=== PATIENT | male | born 1985 | race Two or more races ===

== ENCOUNTER 2020-07-08 08:30 | Inpatient (IN) | payer OTHER ==
[~2020-07-08] VITALS: Ht 190.5 cm; Wt 124.3 kg
[2020-08-05] MEDS ORDERED: ceFAZolin sod 1 GM in NS 55 ML IVPB ONE (07:00)
[2020-08-12] VITALS (11 sets, daily range): BP systolic 106–138; BP diastolic 34–79
[2020-08-12] MEDS ORDERED: Rocuronium Bromide 50mg/5ml Inj IV ONE (07:21)
[2020-08-12] MEDS ORDERED: Succinylcholine 20mg/ml 10ml vial ONE (07:21)
[2020-08-12] MEDS ORDERED: Vancomycin 1gm vial IVPB ONE (07:28)
[2020-08-12] MEDS ORDERED: Thrombin 5000 units TOPIC ONE ×3 (07:28→09:17)
[2020-08-12] MEDS ORDERED: EPINEPHrine 1mg/1ml Amp ONE ×2 (07:28→07:30)
[2020-08-12] MEDS ORDERED: Bupivacaine 0.5% Inj 30 ml vial INJ ONE ×2 (07:29→07:30)
[2020-08-12] MEDS ORDERED: Bupivacaine w/Epi 0.25% 50ml vial INJ ONE (07:29)
[2020-08-12] MEDS ORDERED: Bacitracin 50000 Units Vial ONE (07:29)
[2020-08-12] MEDS ORDERED: Gelfoam Size TOPIC ONE (07:31)
[2020-08-12] MEDS ORDERED: fentaNYL 100 mcg/2 mL IV ONE (07:35)
[2020-08-12] MEDS ORDERED: Midazolam 2mg/2ml Inj ONE (07:36)
[2020-08-12] MEDS ORDERED: Lidocaine 1% MPF 10mg/ml 5ml ONE (07:41)
[2020-08-12] MEDS ORDERED: NS Irrig 1000ml IRRIG ONE ×2 (07:42→08:42)
--- NOTE | 2020-08-12 08:10 | Anethesia Preoperative Eval ---
Anesthesia Pre-op PMH/ROS General Date of Evaluation: Aug 12, 2020 Time of Evaluation: 08:06 Anesthesiologist: Yelitza ASA Score: ASA 2 Mallampati Score Class I : Soft palate, uvula, fauces, pillars visible Class II: Soft palate, uvula, fauces visible Class III: Soft palate, base of uvula visible Class IV: Only hard plate visible Mallampati Classification: Class III Surgeon: Juan Diagnosis: Lumbar radiculopathy Surgical Procedure: Lumbar laminotomy with decompression Anesthesia History: none Family History: no anesthesia problems Allergies: Coded Allergies: No Known Allergies (Unverified , 07/30/20) Medications: see eMAR Patient NPO?: Yes Past Medical History Cardiovascular: Denies: HTN, CAD, [place], valve dz, arrhythmia, other Pulmonary: Denies: asthma, COPD, ISABELL, other Gastrointestinal/Genitourinary: Reports: GERD; Denies: CRI, ESRD, other Neurologic/Psychiatric: Reports: depression/anxiety, other - chronic pain; Denies: dementia, CVA, TIA Endocrine: Denies: DM, hypothyroidism, steroids, other HEENT: Denies: cataract (L), cataract (R), glaucoma, TE-MOAK (L), TE-MOAK (R), other Hematology/Immune: Denies: anemia, DVT, bleeding disorder, other Musculoskeletal/Integumentary: Denies: OA, RA, DJD, DDD, edema, other Other: obesity PMH Narrative: as above PSxH Narrative: See H&P Anesthesia Pre-op Phys. Exam Physician Exam Last Vital Signs Date Time Temp Pulse Resp B/P (MAP) Pulse Ox O2 Delivery O2 Flow Rate FiO2 08/12/20 07:41 98.1 72 18 138/79 (98) 98 08/12/20 07:39 Room Air Constitutional: NAD Neurologic: CN 2-12 intact Cardiovascular: RRR, no M/R/G Respiratory: CTA Gastrointestinal: other - obesity Airway Exam Mallampati Score: Class III Neck: short ROM: full Teeth: intact Dentures: no upper, no lower Anesthesia Pre-op A/P Labs see chart Studies Pre-op Studies: EKG - SR Risk Assessment & Plan Assessment: ASA 2 Plan: GA with ETT neuromonitoring, prone position Status Change Before Surgery: No Pre-Antibiotics Drug: Ancef 2gr. Given Within 1 Hr of Incision: Yes Time Given: 09:10 Papi Torre MD Aug 12, 2020 08:10
[2020-08-12] MEDS ORDERED: propofoL 1,000mg/100ml IV ONE (08:30)
[2020-08-12] MEDS ORDERED: NS Irrig 1000ml ONE (08:30)
[2020-08-12] MEDS ORDERED: LR 1000ml ONE (08:30)
[2020-08-12] MEDS ORDERED: Acetaminophen (Non formulary) 100 ML IV ONE (08:30)
[2020-08-12] MEDS ORDERED: Sterile Water Irrig 1000ml IRRIG ONE (08:30)
--- NOTE | 2020-08-12 09:08 | Pre-Procedure Note/Attestation ---
Pre-Procedure Note/Attestation Complete Prior to Procedure Procedure Narrative: L45 laminectomy and discectomy Indications for Procedure Pre-Operative Diagnosis: L45 HNP Attestation I attest that I discussed the nature of the procedure; its benefits; risks and complications; and alternatives (and the risks and benefits of such alternatives), prior to the procedure, with the patient (or the patient's legal financial representative). I attest that, if there was a reasonable possibility of needing a blood transfusion, the patient (or the patient's legal financial representative) was given the [facility] standardized written summary, pursuant to the Yannick Ruby Blood Safety Act ([place] Health and Safety Code # 1645, as amended). I attest that I re-evaluated the patient just prior to the surgery and that there has been no change in the patient's H&P, except as documented below: Jerardo Martinez MD Aug 12, 2020 09:08
--- NOTE | 2020-08-12 09:09 | Brief Operative Note ---
Immediate Post Operative Note Operative Note Pre-op Diagnosis: L45 HNP Procedure: L45 laminectomy and discectomy Post-op Diagnosis: same as pre-op Findings: consistent w/pre-op dx studies Surgeon: tere Administrative Support Clerk: alicia burgess Anesthesiologist: koby Anesthesia: general Specimen: none Complications: none Condition: stable Fluids: 800 Estimated Blood Loss: minimal - 150 Drains: none Implant(s) used?: No Jerardo Martinez MD Aug 12, 2020 09:09
[2020-08-12] MEDS ORDERED: Gelatin Sponge,Absorbable Syr TP ONE (09:14)
[2020-08-12] MEDS ORDERED: Morphine Sulfate 10mg/ml Inj ONE (09:32)
[2020-08-12] MEDS ORDERED: Ketorolac 30mg Inj ONE (09:33)
[2020-08-12] MEDS ORDERED: Neostigmine 1mg/ml 10ml Inj ONE (09:33)
[2020-08-12] MEDS ORDERED: Glycopyrrolate 0.2mg/ml 1ml Vial ONE (09:33)
[2020-08-12] MEDS ORDERED: Sodium Chloride 10ml vial INJ ONE (09:33)
[2020-08-12] MEDS ORDERED: LR 1000ml 1,000 ML IVLG SCH (10:15)
[2020-08-12] MEDS ORDERED: Ketorolac 30mg Inj IV PRN (10:15)
[2020-08-12] MEDS ORDERED: Hydromorphone 0.5mg/0.5ml inj IVP PRN (10:15)
[2020-08-12] MEDS ORDERED: Midazolam 2mg/2ml Inj IVP PRN (10:15)
[2020-08-12] MEDS ORDERED: Metoclopramide 10mg/2ml Inj IVP PRN (10:15)
[2020-08-12] MEDS ORDERED: Meperidine 25mg/1ml Inj (FOR RIGORS ONLY) IV PRN (10:15)
[2020-08-12] MEDS ORDERED: DiphenhydrAMINE 50mg/ml Inj IVP PRN (10:15)
--- NOTE | 2020-08-12 11:47 | Immediate Post-Op Evaluation ---
Immediate Post-Op Evalulation Immediate Post-Op Evalulation Procedure: L4-L5 laminotomy with discectomy and decompression Date of Evaluation: Aug 12, 2020 Time of Evaluation: 11:46 IV Fluids: 800 Blood Products: none Estimated Blood Loss: 150 Urinary Output: none Blood Pressure Systolic: 106 Blood Pressure Diastolic: 53 Pulse Rate: 67 Respiratory Rate: 18 O2 Sat by Pulse Oximetry: 99 Temperature (Fahrenheit): 97.8 Pain Score (1-10): 1 Nausea: No Vomiting: No Complications none Patient Status: reacts, patent, extubated, none Hydration Status: adequate Papi Torre MD Aug 12, 2020 11:47
--- NOTE | 2020-08-12 12:44 | Operative Note - Dictated ---
DATE OF OPERATION: 08/12/2020 SURGEON: Jerardo Martinez MD. CONTRACT MANAGEMENT SPECIALIST: Shahab Castaneda PA-C. ANESTHESIOLOGIST: Papi Torre MD. ANESTHESIA TYPE: General endotracheal anesthesia. PREOPERATIVE DIAGNOSES: Disk herniation, extrusion, stenosis, and radiculopathy L4-L5. POSTOPERATIVE DIAGNOSES: Disk herniation, extrusion, stenosis, and radiculopathy L4-L5. PROCEDURE: 1. Complete bilateral laminectomy, L4-L5. 2. Neurolysis. 3. Left-sided diskectomy, L4-L5. 4. Use of operating microscope. 5. Use of fluoroscopy. 6. Neurodiagnostic monitoring. ESTIMATED BLOOD LOSS: 150 mL. COMPLICATIONS: None. FINDINGS: phenomenon, extensive neovascularization, scarring, and marked spinal stenosis with calcified and adherent disk ventral to the nerve sac. INDICATIONS: The patient is a very pleasant and 35-year-old with intractable back pain and radiculopathy both lower extremities, left greater than right. The injury is approximately 10 months old. Large disk herniation was noted. It has taken nearly 9 months to obtain authorization and be able to adequately schedule the patient. Conservative care has failed. MR imaging confirmed an exceedingly large disk herniation with severe acquired spinal stenosis. RISKS NOTE: The patient was explained in detail risks, benefits of surgery to include but not be limited to those of bleeding, infection, damage to nerves, vessels, tendons, anesthetic risk, allergic reaction, aspiration, possibly . The patient understood and wished to proceed. OPERATIVE PROCEDURE IN DETAIL: The patient was taken to the operating suite. After general endotracheal anesthesia was obtained, he was turned prone onto a radiolucent table. Back was prepped and draped in usual sterile fashion. A midline incision was marked out at the L4-L5 level and radiographically confirmed with fluoroscope. At this point, the skin was infiltrated with Marcaine epinephrine. The incision was carried out at L4-L5 and a subperiosteal dissection was carried out bilaterally. The left side was first addressed after the proper positioning was confirmed at L4-L5. At this point, operating microscope was brought in place and a hemilaminectomy was performed on the left side at L4-L5 with removal of the leading edge of lamina of L4 and superior edge of L5 with 50% medial facetectomy. Ligamentum flavum was removed in a piecemeal fashion. The dural sac was noted to be severely compressed. The nerve root was gently retracted medially and the disk was encountered. Multiple passes at the disc were made. However, the central extrusion was noted to be more central. The lateral extrusion was removed. There was still notable and severe spinal stenosis encountered due to central protrusion which due to the angle of the nerve root takeoff, this could not be safely removed unless we had sacrificed the entire facet joint. It was therefore elected to perform a complete dorsal laminectomy. Once satisfied with the diskectomy portion through the right side, the area was packed off. FloSeal was applied. A high-speed drill and rongeur was then used to remove the spinous process of L4 inferiorly and L5 superiorly. High-speed drill was used to remove the lamina of L4 and L5 approximately 50%. A minimal facetectomy was performed to avoid further destabilization. However, there was still notable lateral recess stenosis. Therefore, curved curette as well as Kerrison was used to undermine the leading edge of the facet on the right side. Once satisfied with the decompression, copious irrigation was applied. Valsalva demonstrated no CSF leak. FloSeal was applied due to the extensive bony work. Medium-sized Hemovac drain was placed deep to the fascia. Vancomycin was also applied 1 gram deep to the fascia due to the patient's large body habitus. The fascia was then repaired using #1 Vicryl, subcutaneous closure using 2-0 Vicryl. Dermabond was then applied. Tegaderm dressing was applied. At time of this dictation, the patient was awaiting extubation. Please note, sponge and needle counts were correct. Neurodiagnostic monitoring remained stable. Jerardo Martinez M.D. DR: Toni JOB#: [id number] CC:
--- NOTE | 2020-08-12 13:20 | NUR ---
NURSE NOTES: RN notified Dr. Ordoñez and Dr. Zavala that patient is on the floor.
--- NOTE | 2020-08-12 13:20 | NUR ---
NURSE NOTES: RN received patient from recovery nurse Santo. Patient is aaoX4. Patient went back to sleep after RN checked mentation. Ice bag is placed on the patient's bag. Belongings verified with Santo and signed. IV is patent, clean, dry and asymptomatic. Patient denies respiratory distress or pain. Vitals are stable: BP:134/77. 60 bpm, O2 100% on 3 L of NC, 97.3 for body temperature. Bed in lowest position, locked, bed alarm on. Call light within reach and patient able to make needs known. Will continue to monitor.
--- NOTE | 2020-08-12 13:42 | NUR ---
PT NOTE Received MD order for PT evaluation. Attempted to see patient for PT, patient sleeping post-op, unable to participate with PT at this time. Tanner ABAD notified, will follow up tomorrow.
--- NOTE | 2020-08-12 14:09 | Diagnostic Imaging Report ---
XRAY L Spine 1V CLINICAL HISTORY: Back pain. COMPARISON: None FINDINGS: Fluoroscopy independent procedure performed for intraoperative localization. 3.3 seconds of fluoroscopy time utilized by the ordering physician. Total cumulative dose is 1.68 mGy and 0.03148 Gy.cm2. Total of 2 spot images are obtained . IMPRESSION: FLUOROSCOPY GUIDED PROCEDURE.
[2020-08-12] MEDS ORDERED: HYDROmorphone 1mg/ml Carpuject SUBQ PRN (15:15)
[2020-08-12] MEDS ORDERED: HYDROmorphone 1mg/ml Carpuject IVP PRN (15:15)
[2020-08-12] MEDS: D5 1/2NS 1,000 ML IV SCH (15:49)
[2020-08-12] MEDS: Docusate 100mg cap ORAL SCH (17:30)
[2020-08-12] MEDS: ceFAZolin sod 1 GM in D5W 55 ML IV SCH (17:30)
--- NOTE | 2020-08-12 18:03 | Cardiology Progress Note ---
Assessment/Plan Assessment/Plan [id number] Objective Last 24 Hour Vital Signs Date Time Temp Pulse Resp B/P (MAP) Pulse Ox O2 Delivery O2 Flow Rate FiO2 08/12/20 13:58 Nasal Cannula 3.0 08/12/20 13:00 98.1 73 14 117/73 100 Nasal Cannula 3 08/12/20 12:53 98.1 08/12/20 12:45 63 13 113/72 100 Nasal Cannula 3 08/12/20 12:30 64 13 122/67 100 Nasal Cannula 3 08/12/20 12:15 65 12 117/34 100 Simple Mask 6 08/12/20 12:05 67 12 112/68 100 Simple Mask 6 08/12/20 11:55 65 10 106/55 100 Simple Mask 6 08/12/20 11:50 66 10 108/56 100 Simple Mask 6 08/12/20 11:47 67 18 99 08/12/20 11:45 97.4 68 10 106/48 100 Simple Mask 6 08/12/20 07:41 98.1 72 18 138/79 (98) 98 08/12/20 07:39 Room Air Evan Ordoñez MD Aug 12, 2020 18:03
--- NOTE | 2020-08-12 20:00 | NUR ---
NURSE NOTES: Received patient awake in bed, c/o mild pain at this time. RT called for IS instruction. Dr Zavala at bedside. Patient able to void in urinal. IV access patent. Bed low and locked, patient refusing SCDs at this time.
--- NOTE | 2020-08-12 20:01 | NUR ---
NURSE HAND-OFF: Important Events on Shift:post op interventions, hemovac drain (35ml bright red) Patient Status: stable Diet: clear liquid. advance to regular as tolerated Pending Orders: n/a Pending Results/Labs:n/a Pending MD notification:n/a Latest Vital Signs: Temperature 97.3 , Pulse 60 , B/P 134 /77 , Respiratory Rate 18 , O2 SAT 100 , Nasal Cannula, O2 Flow Rate 3.0 . Vital Sign Comment: stable Latest Stoll Fall Score: 10 Fall Risk: Low Risk Safety Measures: Call light Within Reach, Bed Alarm Zone 1, Side Rails Side Rails x2, Bed position Low and Locked. Fall Precautions: Yellow Socks Door Sign Patient Fall Education Report given to amaury.
--- NOTE | 2020-08-12 21:29 | Consultation ---
DATE OF CONSULTATION: 08/12/2020 CARDIOLOGY CONSULTATION CONSULTING PHYSICIAN: Evan Ordoñez MD REFERRING PHYSICIAN: Jerardo Martinez MD REASON FOR REFERRAL: Postoperative medical care. HISTORY OF PRESENT ILLNESS: This is a 35-year-old gentleman with history of lumbar spine disc herniation who underwent surgery by Dr. Martinez today and he is being seen postoperatively. He has done relatively well postoperatively. He has had some sore throat, is the only major complaint on questioning. Denies any chest pain or shortness of breath. No PND. No orthopnea. No palpitation. No dizziness. PAST MEDICAL HISTORY: Negative except for chronic low back pain and radiculopathy for which he has undergone surgery today. ALLERGIES: He is not allergic to any medications. SOCIAL HISTORY: He does not smoke and does not drink alcoholic beverages. No use of any drugs. REVIEW OF SYSTEMS: GASTROINTESTINAL: Negative for nausea, vomiting, diarrhea, or constipation. Has not had a bowel movement. GENITOURINARY: Negative. PULMONARY: Negative. CONSTITUTIONAL: Negative. NEUROLOGICAL: Negative. PHYSICAL EXAMINATION: GENERAL: Shows to be a young gentleman, in no respiratory distress. NECK: Supple. No jugular venous distention. LUNGS: Clear to auscultation and percussion. CARDIAC: S1 is normal. S2 is normal. Regular rate and rhythm. No heaves or thrills. ABDOMEN: Soft, nontender. Positive bowel sounds. EXTREMITIES: He has pneumatic compression stockings in place. NEUROLOGIC: He is able to move all four extremities. He is awake and alert and oriented. VITAL SIGNS: Blood pressure, most recently 117/73 with a heart rate of 73, temperature 98.1, and 3 liters nasal cannula. LABORATORY AND DIAGNOSTIC DATA: His preop labs were reviewed. Sodium 139, potassium 5, chloride 102, bicarb 28, BUN , creatinine 0.9. Liver function tests are normal. White count of 5.3, hemoglobin 14.9, and platelet count of 224. INR of 1 and PTT of 26. Preop EKG, sinus rhythm with no ST or T-wave abnormalities. COVID swab test was negative. Chest x-ray showed no acute cardiopulmonary disease processing. ASSESSMENT AND PLAN: Lumbar radiculopathy. The patient has undergone surgery. The patient is being seen postoperatively, doing relatively well. Pain medications per Pain Management. Antiemetics if needed, IV fluids while NPO. Hope to have the patient go home once he is passing gas and eating and moving around. DVT prophylaxis with the use of pneumatic compression stockings and early ambulation as allowed by Dr. Martinez. Evan Ordoñez M.D. DR: SHAISTA JOB#: [id number] CC:
[2020-08-12] MEDS ORDERED: HYDROcodone/Acetamin 10/325 tab ORAL ONE (22:04)
--- NOTE | 2020-08-12 23:29 | Consultation ---
DATE OF CONSULTATION: 08/12/2020 CONSULTING PHYSICIAN: Mike Zavala MD REFERRING PHYSICIAN: Jerardo Martinez MD REASON FOR CONSULTATION: Acute pain consult. HISTORY OF PRESENT ILLNESS: Dear Dr. Jerardo Martinez, Thank you kindly for consulting me to evaluate and render an opinion as to how to proceed in the management of the patient's acute postoperative lumbar spine pain after his decompressive lumbar spine surgery today. Patient is a pleasant obese 35-year-old gentleman, who injured his lumbar spine in a work-related injury. Today, he underwent multiple level lumbar spine decompressive surgery and complained significant postoperative discomfort. You consulted me to help with this patient's postoperative care and pain management. I saw the patient at the bedside with the nurse RN, Leslie. I also discussed the case with the day nurse RN, Tanner. I performed detailed history and physical examination. I spent over 75 minutes in consultation with an additional 30 minutes in medical record review. Multiple records were reviewed including utilization review and surgical authorization by the insurance carrier certifying surgery and hospitalization as certified. Further record review include preoperative orthopedic consultation clinic notes from Dr. Jerardo Martinez. Preoperative records were reviewed from Dr. Yoandy Ng dated 08/07/2020 including diagnostic testing. Multiple records were reviewed from today's date of surgery at [facility], 08/12/2020 including consent for surgical treatment, consent for anesthesia, consent for blood products, medication administration record, medication reconciliation order form, PACU record, PACU orders, anesthesia record, pre- and post-anesthesia evaluation record, postoperative spine surgery orders and postoperative surgery report by Dr. Jerardo Martinez. Surgical invasive procedure check list, preoperative interdisciplinary plan of care, guidelines for prophylactic antibiotics, guidelines for DVT prophylaxis. PAST MEDICAL HISTORY: 1. Acute postoperative lumbar spine pain, status post decompressive lumbar spine surgery by Dr. Jerardo Martinez in July 2020. 2. Work-related injury. 3. Obesity. 4. Active tobacco usage. PAST SURGICAL HISTORY: None prior. SOCIAL HISTORY: Patient actively smokes tobacco. I counseled the patient to discontinue smoking. Patient uses marijuana rarely. He lives at home with his girlfriend and 2 children with minimal alcohol usage. REVIEW OF SYSTEMS: Per Dr. Ng. FAMILY HISTORY: Noncontributory. MEDICATIONS AT HOME: Naprosyn, Flexeril. The patient has tolerated hydrocodone in the past. PHYSICAL EXAMINATION: VITAL SIGNS: Age 35, height 6 feet 3 inches, weight 124 kg, body mass index 34. Vital signs shows pain level 7/10 on the visual analog pain scale. Afebrile, pulse 94, respirations 18, blood pressure 123/73, oxygen saturation 97%. HEENT: Normocephalic, atraumatic. Extraocular muscles intact. No Carrion's palsy. No Koby syndrome. Normal dentition. No nuchal rigidity. CHEST: Clear to auscultation. ABDOMEN: Mildly obese. Positive bowel sounds. EXTREMITIES: Lumbar spine pain by incision area with minimal paraspinal muscle spasms appreciated. Pain with log-rolling. Hemovac drain holding suction. 5/5 dorsiflexion, 5/5 plantar flexion in bilateral lower extremities. NEUROLOGIC: Detailed neurologic exam per Dr. Martinez. GENITOURINARY: Deferred. DIAGNOSTIC TESTING: From 08/07/2020 shows glucose 100, sodium 139, potassium 5.0, chloride 103, bicarb 28, BUN 15, creatinine 1.0. Calcium 9.3. Total protein 7.1, albumin 4.4. AST 29, ALT 65 high normal, alkaline phosphatase 53, total bilirubin 0.6. White count 5, hematocrit 45, platelets 224. INR 1.0, PTT 27. A 12-lead EKG, illegible. IMPRESSION: 1. Acute postoperative lumbar spine pain, status post decompressive lumbar spine surgery by Dr. Jerardo Martinez in July 2020. 2. Work-related injury. 3. Obesity. 4. Active tobacco usage. TREATMENT RECOMMENDATIONS: I spoke with the hospital pharmacistJamie., Pharm D to add a breakthrough dose of Dilaudid 0.5 mg intravenously every 2 hours p.r.n. for moderate pain, followed with a double dose of Dilaudid 1 mg subcutaneously every 3 hours p.r.n. for severe breakthrough pain. Patient has used Flexeril in the past, but states that this muscle relaxant does not help much. I will see if the opioid analgesics are adequate so that he can use primarily MU-opioid analgesics for primary analgesia. Patient has tolerated hydrocodone in the past and I have ordered [place] 10/325 one tablet orally every [address] hours p.r.n. for mild pain. Dr. Martinez has added a p.r.n. dose of temazepam 15 mg in case of insomnia. I have added Tylenol p.r.n. as an antipyretic. I have also ordered Benadryl 25 mg orally every 6 hours in case of any itching complaints. I will empirically place patient on Pepcid 25 mg b.i.d. for GI ulcer prophylaxis and I have ordered a p.r.n. dose of Mylanta 30 mL every 6 hours in case of any GERD symptom exacerbation. I have ordered Zofran 4 mg intravenously every 4 hours p.r.n. for nausea and vomiting. The patient will be placed on Colace 100 mg b.i.d. to promote bowel regularity. We will continue IV fluids overnight in this 275 pounds patient, to avoid intravascular dehydration. The patient is starting to increase his oral intake and has been able to void urine well. We will follow the output from the indwelling lumbar spine drain catheter. The patient works with Physical Therapy starting on postop day #1, which will need to include stairs training. Patient lives at home with his girlfriend and 2 children. Patient does feel confident that his girlfriend will be able to assist with activities of daily living once he is discharged from the hospital. Mike Zavala M.D. DR: ABDULKADIR JOB#: [id number] CC:
[2020-08-13] VITALS: BP 129/70
[2020-08-13] MEDS: D5 1/2NS 1,000 ML IV SCH
[2020-08-13] MEDS: ceFAZolin sod 1 GM in D5W 55 ML IV SCH ×2 (00:50→10:19)
[2020-08-13] MEDS: HYDROcodone/Acetamin 10/325 tab ORAL PRN ×2 (03:05→07:50)
[2020-08-13 04:00] VITALS: BP 117/67
--- NOTE | 2020-08-13 07:51 | NUR ---
NURSE NOTES: Report given to Arturo Crespo
[2020-08-13 08:00] VITALS: BP 129/70
--- NOTE | 2020-08-13 09:15 | NUR ---
PT EVALUATION NOTE Patient seen for initial evaluation and treatment initiated. Patient presents with low back pain and impaired functional mobility s/p lumbar surgery. Patient instructed in proper log roll technique and back precautions. Patient required CGA for bed mobility and transfers. Patient able to ambulate 200 ft with SBA/CGA, no assistive device. Patient will benefit from skilled inpatient PT intervention to increase postural stability for improved level of functional mobility, safety and activity tolerance including stair training. Anticipate discharge home once medically cleared by MD. Recommend raised toilet seat for home use. Addendum: 08/13/20 at 1251 by SERENE JULIAN PT Amended: Links added.
[2020-08-13] MEDS: Docusate 100mg cap ORAL SCH (10:19)
[2020-08-13 12:18] VITALS: BP 119/84
--- NOTE | 2020-08-13 13:23 | Pain Management Progress Note ---
Allergies: Coded Allergies: No Known Allergies (Unverified , 07/30/20) Vitals Vital Signs Date Time Temp Pulse Resp B/P (MAP) Pulse Ox O2 Delivery O2 Flow Rate FiO2 08/13/20 12:18 96.8 60 18 119/84 (96) 94 08/13/20 09:00 Room Air 08/13/20 08:00 97.9 64 18 129/70 (89) 99 Medications Current Medications Acetaminophen (Tylenol) 650 mg Q6H PRN ORAL Temp >100.5; Start 08/12/20 at 22:15; Stop 09/11/20 at 22:14 Acetaminophen/ Hydrocodone Bitart ([place] 10/325) 1 tab Q3HR PRN ORAL Mild Pain (Pain Scale 1-3) Last administered on 08/13/20at 07:50; Start 08/12/20 at 22:15; Stop 08/19/20 at 22:14 Al Hydroxide/Mg Hydroxide (Mylanta) 30 ml Q6H PRN ORAL GERD; Start 08/12/20 at 22:15; Stop 09/11/20 at 22:14 Diphenhydramine HCl (Benadryl) 25 mg Q6H PRN ORAL Itching; Start 08/12/20 at 22:15; Stop 09/11/20 at 22:14 Docusate Sodium (Colace) 100 mg TWICE A DAY ORAL Last administered on 08/13at 10:19; Start 08/12/20 at 18:00; Stop 09/11/20 at 17:59 Famotidine (Pepcid) 20 mg BID ORAL Last administered on 08/13/20at 10:19; Start 08/13/20 at 09:00; Stop 11/11/20 at 08:59 Hydromorphone HCl (Dilaudid) 0.5 mg Q2H PRN IVP moderate pain Last administered on 08/12/20at 20:32; Start 08/12/20 at 15:15; Stop 08/19/20 at 15:14 Hydromorphone HCl (Dilaudid) 1 mg Q3H PRN SUBQ SEVERE PAIN Last administered on 08/13/20at 13:12; Start 08/12/20 at 15:15; Stop 08/19/20 at 15:14 Ondansetron HCl (Zofran) 4 mg Q4H PRN IVP Nausea & Vomiting; Start 08/12/20 at 22:15; Stop 09/11/20 at 11:29 Temazepam (Restoril) 15 mg HSPRN PRN ORAL Insomnia; Start 08/12/20 at 11:30; Stop 08/19/20 at 11:29 Plan: Patient seen with nurse POLLO Dawkins. Discussed with surgeon Dr Martinez & physical therapist. Hemovac drain output 50 cc over the past nightshift; less than 15 cc during this morning shift. Lumbar wound site dressing removed sterilely. Suture line appears dry and intact. No erythema or exudate noted. At end-expiration, with the hemovac drain taken [id number], I personally removed the indwelling lumbar spine drain catheter sterilely. Tip intact. Drain hole & incision-line swabbed with alcohol. Dressing with sterile bandage. No complications. Pain level 8 / 10 on the visual-analog pain scale. VSS. No chest pain or SOB. Continue prn dilaudid and norco as ordered; both well-tolerated. MAR medication list reviewed. Advancing diet tolerated without emesis. Will heplock iv fluids. GI: +BS +flatus No BM. Instructed pt to use home laxative foods and remedies, as narcotics may constipate him. Encourage incentive spirometer usage. Advancing ambulation with physical therapy well; will trial stairs-training this afternoon. SCDs for mechanical prophylaxis against deep venous thrombosis and PEs. Discussed discharge planning with RNs & surgeon to help expedite hospital discharge. Pt's girlfriend should be able to pickup pt later today. [place] 10/325 qty#50 Rx left for outpatient pain medication usage. Mike Zavala MD Aug 13, 2020 13:23
[2020-08-13 16:00] VITALS: BP 124/73
--- NOTE | 2020-08-14 11:45 | Discharge Summary ---
Discharge Summary Discharge Summary _ Date of admission: 08/12/2020 Date of discharge: 08/13/[address] Martinez History of Present Illness and Brief Hospital Course Mr. Bartlett is a 35-year-old male who presented to [facility] for a scheduled surgery. Patient had intractable back pain and radiculopathy in both lower extremities, left greater than right. The injury was approximately 10- month old. Conservative care had failed. MR imaging confirmed an exceedingly large disc herniation with severe acquired spinal stenosis. Patient underwent complete bilateral laminectomy at L4-L5, left-sided discectomy at L4-L5, and neurolysis. The details of the procedure can be found in the operative note by Dr. Martinez. Patient tolerated the procedure well and was closely monitored after the surgery. Patient's pain medications were given as needed. Patient began passing flatus. Patient was also evaluated by a physical therapist. Patient was medically stable for discharge and was discharged home on 08/13/2020. Consultants: Pain management Dr. Zavala Cardiology Dr. Ordoñez Discharge Condition Improved and stable Discharge activity Advance as tolerated Discharge Diet Advance as tolerated Final diagnoses Disc herniation, extrusion, stenosis, and radiculopathy at L4-L5 s/p complete bilateral laminectomy at L4-L5 s/p neurolysis s/p left-sided discectomy at L4-L5 I have been assigned to dictate discharge summary for this account. I was not involved in the patient's management Yevgeniy Lubin Aug 14, 2020 11:45
== END 2020-08-13 17:00 | disposition home or self-care (01) | DRG 520 ==
LOC: SDSOVERFLO 08-12 07:12 → 4E 08-12 13:20
PROC: 01NB0ZZ Release Lumbar Nerve, Open Approach (ICD-10-PCS; principal; 2020-08-12 08:30)
PROC: 0SB20ZZ Excision of Lumbar Vertebral Disc, Open Approach (ICD-10-PCS; principal; 2020-08-12 08:30)
DX: M51.16 Intervertebral disc disorders with radiculopathy, lumbar region (principal); M48.061 Spinal stenosis, lumbar region without neurogenic claudication; F17.200 Nicotine dependence, unspecified, uncomplicated; E66.9 Obesity, unspecified; Z68.34 Body mass index [BMI] 34.0-34.9, adult
CPT/HCPCS: 36415; 72020; 76000; 86850; 86900; 86901; 87081; 94003; 94150; J2180; J2250; J2405; J2710